=== PATIENT | female | born 1995 | race Caucasian/White ===

== ENCOUNTER → 2017-04-12 | Outpatient (CLI) | payer OTHER ==
--- NOTE | 2017-04-12 09:47 | RAD ---
Right tibia-fibula HISTORY: Pain FINDINGS: Two views of the right lower extremity demonstrate a recent surgical repair by intramedullary izabel placement in right tibia, across diaphyseal fracture. Unremarkable bony alignment across this fracture. If additional minimally displaced fracture in mid shaft of the fibula. Bony alignment in the knee and ankle joints are maintained. No obvious soft tissue abnormality is identified along the calf. Cutaneous patrizia noted anterior to infrapatellar Hoffa's pad. IMPRESSION: Unremarkable postsurgical changes of prior fixation across mid tibial fracture. Additional fracture noted in mid shaft of the fibula. Electronically signed by: Tony Ibrahim MD 04/12/2017 9:46 AM [facility]
== END ==
LOC: RAD 08:50
PROVIDERS: ATTEND Orthopaedic Surgery
DX: M79.604 Pain in right leg (principal); Z98.890 Other specified postprocedural states

== ENCOUNTER → 2017-05-10 | Outpatient (CLI) | payer OTHER ==
--- NOTE | 2017-05-11 08:11 | RAD ---
EXAM DESCRIPTION: Tibia/Fibula,Right CLINICAL HISTORY: 21 years Female, UNSP FRACTURE OF SHAFT OF TIBIA COMPARISON: Previous study April 12, 2017 TECHNIQUE: Frontal and lateral x-ray views of the right tibia and fibula FINDINGS: Intramedullary izabel is seen in the tibia traversing comminuted fracture of the mid to distal diaphysis. Oblique fracture of the mid fibular diaphysis is also noted with slight offset. The alignment is unchanged compared to previous study. Minimal callus formation is seen anteriorly and medially. IMPRESSION: Fractured right tibia and fibula with tibial intramedullary izabel. Early callus formation is visualized. Electronically signed by: Jaciel Mar MD 05/11/2017 8:09 AM CDT
== END ==
LOC: RAD 08:44
PROVIDERS: ATTEND Orthopaedic Surgery
DX: S82.201E Unspecified fracture of shaft of right tibia, subsequent encounter for open fracture type I or II with routine healing (principal)

== ENCOUNTER → 2017-06-11 | Outpatient (CLI) | payer OTHER ==
--- NOTE | 2017-06-11 12:40 | RAD ---
EXAM DESCRIPTION: Tibia/Fibula,Right CLINICAL HISTORY: 21 years Female, OPEN FRACTURE OF TIBIA AND FIBULA COMPARISON: Previous study May 10, 2017 TECHNIQUE: Frontal and lateral x-ray views of right tibia and fibula FINDINGS: Orthopedic hardware is seen in the right tibia. Fractures are seen in the tibial and fibular diaphyses with no change in alignment since previous study May 10, 2017. Some callus formation is developing. IMPRESSION: Healing fractures of right tibia and fibula. Electronically signed by: Jaciel Mar MD 06/11/2017 12:38 PM CDT
== END ==
LOC: RAD 09:06
PROVIDERS: ATTEND Orthopaedic Surgery
DX: S82.201E Unspecified fracture of shaft of right tibia, subsequent encounter for open fracture type I or II with routine healing (principal); S82.401E Unspecified fracture of shaft of right fibula, subsequent encounter for open fracture type I or II with routine healing

== ENCOUNTER → 2017-09-17 | Outpatient (CLI) | payer OTHER ==
--- NOTE | 2017-09-17 10:59 | RAD ---
EXAM DESCRIPTION: Tibia/Fibula,Right CLINICAL HISTORY: 22 years Female, TIB FX COMPARISON: Previous study June 11, 2017 FINDINGS: Intramedullary izabel is seen in the tibia with proximal and distal screws. Callus formation is seen around tibial and fibular fractures consistent with partial healing. The healing process has progressed since previous study June 11, 2017. IMPRESSION: Healing fractures of the right tibia and fibula. Electronically signed by: Jaciel Mar MD 09/17/2017 10:58 AM CDT
== END ==
LOC: RAD 07:24
PROVIDERS: ATTEND Orthopaedic Surgery
DX: S82.201E Unspecified fracture of shaft of right tibia, subsequent encounter for open fracture type I or II with routine healing (principal); S82.401E Unspecified fracture of shaft of right fibula, subsequent encounter for open fracture type I or II with routine healing

== ENCOUNTER → 2019-01-20 | Outpatient (CLI) | payer OTHER ==
--- NOTE | 2019-01-20 12:49 | RAD ---
EXAM DESCRIPTION: Tibia/Fibula,Right CLINICAL HISTORY: PAIN IN RIGHT LEG COMPARISON: 17 September 2017 TECHNIQUE: 2 views right FINDINGS: Exam reveals an IM izabel traversing a fracture of the junction of middle and distal thirds of the tibia. Screw fixation of the proximal and distal ends of the izabel are observed. A prior fracture the midshaft of the fibula is observed. Callus formation is seen to bridge both fracture sites. IMPRESSION: Healed fractures of the right tibia and fibula. Electronically signed by: Leighton Obrien MD 01/20/2019 12:47 PM [facility]
== END ==
LOC: RAD 10:19
PROVIDERS: ATTEND Orthopaedic Surgery
DX: M79.604 Pain in right leg (principal); Z87.81 Personal history of (healed) traumatic fracture